=== PATIENT | male | born 1965 ===

== ENCOUNTER 2016-11-29 21:08 | Emergency (ER) | payer BC, OTHER ==
[2016-11-29 21:40] VITALS: BP 148/93; PULSE 85; RESP 16; TEMP 98.2; O2SAT 100
--- NOTE | 2016-11-29 22:14 | ED PDOC ---
Lower Extremity Pain/Injury Time Seen by Provider: 11/29/16 21:36 Chief Complaint (Nursing): Lower Extremity Problem/Injury Chief Complaint (Provider): Ankle pain History Per: Patient History/Exam Limitations: no limitations Onset/Duration Of Symptoms: Days (2) Current Symptoms Are (Timing): Still Present Additional Complaint(s): Pt reports L ankle pain and swelling X 2 days, woke up with pain, no h/o trauma. Denies fever, paresthesias, weakness, recent travel, CP, SOB. - Risk Factors DVT Risk Factors: Pos: None Past Medical History Reviewed: Nursing Documentation, Vital Signs Vital Signs: Last Vital Signs Temp 98.2 F 11/29/16 21:37 Pulse 85 11/29/16 21:37 Resp 16 11/29/16 21:37 BP 148/93 H 11/29/16 21:37 Pulse Ox 100 11/29/16 21:37 - Medical History Other PMH: Sickle cell trait - Surgical History Other surgeries: R knee - Family History Family History: States: No Known Family Hx - Living Arrangements Living Arrangements: With Family - Social History Current smoker - smoking cessation education provided: No - Home Medications Home Medications: Ambulatory Orders Medication Instructions Recorded Diclofenac Sodium [Voltaren] 50 mg PO TID PRN #20 tab 11/29/15 Naproxen [Naprosyn] 500 mg PO Q12 #14 tab 11/30/16 - Allergies Allergies/Adverse Reactions: Allergies Allergy/AdvReac Type Severity Reaction Status Date / Time No Known Allergies Allergy Verified 11/29/15 20:20 Wells Criteria for PE - Wells Criteria for Pulmonary Embolism Clinical Signs and Symptoms of DVT: No P.E is #1 Diagnosis, or Equally Likely: No Heart Rate >100: No Immobilization at least 3 days;Surgery previous 4 weeks: No Previous, objectively diagnosed PE or DVT: No Hemoptysis: No Malignancy w/treatment within 6 months, or palliative: No Total Score: 0 Review of Systems Constitutional: Negative for: Fever, Chills Cardiovascular: Negative for: Chest Pain, Palpitations Respiratory: Negative for: Cough, Shortness of Breath Musculoskeletal: Positive for: Leg Pain, Foot Pain Skin: Negative for: Rash, Lesions Neurological: Negative for: Weakness, Numbness Physical Exam - Reviewed Nursing Documentation Reviewed: Yes Vital Signs Reviewed: Yes - Physical Exam Appears: Positive for: Well, No Acute Distress Pulses-Dorsalis Pedis (L): 2+ Extremity: Positive for: Normal ROM, Tenderness (Bimalleolar area), Calf Tenderness, Capillary Refill (<2 sec). Negative for: Pedal Edema, Deformity, Swelling Neurologic/Psych: Positive for: Alert, Oriented. Negative for: Motor/Sensory Deficits - ECG O2 Sat by Pulse Oximetry: 100 - Other Rad XR L ankle X-Ray: Interpreted by Me (Negative.) XR L foot X-Ray: Interpreted by Me (Negative.) Medical Decision Making Medical Decision Makin yo male with L ankle pain and swelling. - XR L ankle/foot - LLE Doppler - Toradol Disposition - Clinical Impression Clinical Impression: Ankle pain - Patient ED Disposition Is Patient to be Admitted: Transfer of Care - Disposition Referrals: [facility] [Outside] Podiatry Clinic [Outside] Disposition Time: 00:00 Condition: STABLE Prescriptions: Naproxen [Naprosyn] 500 mg PO Q12 #14 tab Instructions: Swollen Joint (ED) Forms: [facility] ED School/Work Excuse Patient Signed Over To: Vinicio Villasenor Handoff Comments: Pending ultrasound.
--- NOTE | 2016-11-30 00:10 | ED PDOC ---
- ECG O2 Sat by Pulse Oximetry: 100 Medical Decision Making Medical Decision Making: Patient signed out from Dr. Spencer at 0000 pending Ultrasound. 0052: Ultrasound LLE Impression: Normal left lower extremity duplex venous ultrasound. 0100: Provider explained results to patient who will follow up with podiatry clinic. Patient is stable upon discharge. Dx: Ankle pain Rx: Naprosyn Condition: Stable Scribe Attestation Documented by Michaela Prado training under Shayne Pérez acting as a scribe for Vinicio Villasenor MD. Provider Attestation: All medical record entries made by the Scribe were at my direction and personally dictated by me. I have reviewed the chart and agree that the record accurately reflects my personal performance of the history, physical exam, medical decision making, and the department course for this patient. I have also personally directed, reviewed, and agree with the discharge instructions and disposition. Disposition Counseled Patient/Family Regarding: Studies Performed, Diagnosis, Need For Followup, Rx Given - Clinical Impression Clinical Impression: Ankle pain - POA Present On Arrival: None - Disposition Referrals: [facility] [Outside] Podiatry Clinic [Outside] Disposition: Routine/Home Disposition Time: 01:00 Condition: STABLE Prescriptions: Naproxen [Naprosyn] 500 mg PO Q12 #14 tab Instructions: Swollen Joint (ED) Forms: [facility] ED School/Work Excuse
--- NOTE | 2016-11-30 08:18 | US ---
HISTORY: LLE pain . PRIORS: None. FINDINGS: 2-D, color and duplex Doppler analysis of the lower extremity venous circulation using routine protocol from the femoral veins through the popliteal veins. Venous compressibility: Normal. Flow and augmentation patterns: Normal. Visualized veins upper third of calf: Normal. Haney cyst: None. IMPRESSION: No sonographic or Doppler evidence for DVT in left lower extremity.
--- NOTE | 2016-11-30 09:03 | RAD ---
PROCEDURE: Left Ankle Radiographs. HISTORY: Bilateral ankle pain COMPARISON: None FINDINGS: BONES: Normal. No fracture. JOINTS: Normal. No osteoarthritis. Ankle mortise maintained. Talar dome intact SOFT TISSUES: [id number] soft tissue swelling. OTHER FINDINGS: None. IMPRESSION: No evidence of acute fracture or dislocation. Mild soft tissue swelling.
--- NOTE | 2016-11-30 09:06 | RAD ---
PROCEDURE: Left Foot Radiographs. HISTORY: Bilateral ankle pain COMPARISON: None. FINDINGS: BONES: Normal. No fracture. JOINTS: Normal. SOFT TISSUES: Normal. OTHER FINDINGS: None. IMPRESSION: No evidence of acute fracture or dislocation.
== END 2016-11-30 01:19 | disposition home or self-care (01) ==
LOC: H.ER 21:08
DX: M25.572 Pain in left ankle and joints of left foot (principal); D57.3 Sickle-cell trait

== ENCOUNTER 2017-05-05 21:09 | Emergency (ER) | payer OTHER ==
[2017-05-05] MEDS ORDERED: Sodium Chloride 0.9% 1,000 ML IV STA (21:37)
[2017-05-05 21:53] LABS: BASO % 0.4 % (0.0-2.0); EOS # 0.1 K/uL (0.0-0.7); EOS % 1.8 % (0.0-4.0); HEMATOCRIT 38.5 % (35.0-51.0); LYMPH % 52.1 % (20.0-40.0); MEAN CELL VOLUME 84.4 fl (80.0-94.0); MEAN CORPUSCULAR HEMOGLOBIN 28.4 pg (27.0-31.0); MEAN CORPUSCULAR HGB CONC 33.6 g/dL (33.0-37.0); MEAN PLATELET VOLUME 8.2 fl (7.2-11.7); MONO # 0.7 K/uL (0.0-0.8); MONO % 9.1 % (0.0-10.0); NEUT # 2.8 K/uL (1.8-7.0); NEUT % 36.6 % (50.0-75.0); NRBC % 0.1 % (0.0-0.0); RED CELL DISTRIBUTION WIDTH 13.3 % (11.5-14.5); WHITE BLOOD COUNT 7.6 K/uL (4.8-10.8)
[2017-05-05 22:03] LABS: ALB/GLOB RATIO 1.3 (1.0-2.1); ALKALINE PHOSPHATASE 66 U/L (38-126); ALT/SGPT 56 U/L (21-72); AST/SGOT 30 U/L (17-59); BILIRUBIN,TOTAL 0.3 mg/dl (0.2-1.3); BLOOD UREA NITROGEN 20 mg/dl (9-20); CALCIUM 9.2 mg/dL (8.4-10.2); CARBON DIOXIDE 24 mmol/L (22-30); CHLORIDE 105 mmol/L (98-107); GFR AFRICAN-AMERICAN > 60; GLUCOSE,RANDOM 169 mg/dL (75-110); LIPASE 121 U/L (23-300); POTASSIUM 4.3 MMOL/L (3.6-5.0); SODIUM 142 mmol/l (132-148); TOTAL PROTEIN 7.8 G/DL (6.3-8.2)
--- NOTE | 2017-05-05 22:51 | ED PDOC ---
HPI: Abdomen Time Seen by Provider: 05/05/17 21:37 Chief Complaint (Nursing): GI Problem Chief Complaint (Provider): Nausea and vomiting History Per: Patient History/Exam Limitations: no limitations Onset/Duration Of Symptoms: Mins (Just prior to arrival) Current Symptoms Are (Timing): Better Associated Symptoms: Nausea, Vomiting. denies: Diarrhea Additional Complaint(s): Patient is a 52 y/o male with no past medical history, who presents to the ED complaining of nausea and vomiting that began just prior to arrival. Patient reports 3 episodes of non-bloody vomiting, but denies any abdominal pain or diarrhea. He claims that symptoms began about an hour after having a salad with oil, vinegar, and mozzarella, as well as pork rinds. He notes that upon eating the meal he felt "queasy" and nauseas and then later developed body fatigue. Patient claims that since vomiting, he feels better. PMD: Claudio Salinas Past Medical History Reviewed: Historical Data, Nursing Documentation, Vital Signs Vital Signs: Last Vital Signs Temp 97.9 F 05/05/17 23:06 Pulse 60 05/05/17 23:06 Resp 16 05/05/17 23:06 BP 125/79 05/05/17 23:06 Pulse Ox 99 05/05/17 23:08 - Medical History PMH: No Chronic Diseases - Surgical History Other surgeries: Bilateral wrist surgery, right knee surgery - Family History Family History: States: No Known Family Hx - Social History Current smoker - smoking cessation education provided: No Alcohol: None Drugs: Denies - Home Medications Home Medications: Ambulatory Orders Medication Instructions Recorded Diclofenac Sodium [Voltaren] 50 mg PO TID PRN #20 tab 11/29/15 Naproxen [Naprosyn] 500 mg PO Q12 #14 tab 11/30/16 Ondansetron ODT [Zofran ODT] 4 mg PO Q8 PRN #12 odt 05/05/17 - Allergies Allergies/Adverse Reactions: Allergies Allergy/AdvReac Type Severity Reaction Status Date / Time No Known Allergies Allergy Verified 11/29/15 20:20 Review of Systems ROS Statement: Except As Marked, All Systems Reviewed And Found Negative Constitutional: Positive for: Other (Fatigue) Gastrointestinal: Positive for: Nausea, Vomiting (nonbloody). Negative for: Abdominal Pain, Diarrhea Physical Exam - Reviewed Nursing Documentation Reviewed: Yes Vital Signs Reviewed: Yes - Physical Exam Appears: Positive for: Non-toxic, No Acute Distress Head Exam: Positive for: ATRAUMATIC, NORMOCEPHALIC Skin: Positive for: Normal Color, Warm, Dry Eye Exam: Positive for: Normal appearance, EOMI, PERRL ENT: Positive for: Normal ENT Inspection Neck: Positive for: Normal, Painless ROM, Supple Cardiovascular/Chest: Positive for: Regular Rate, Rhythm. Negative for: Murmur Respiratory: Positive for: Normal Breath Sounds. Negative for: Respiratory Distress Gastrointestinal/Abdominal: Positive for: Normal Exam, Soft. Negative for: Tenderness Back: Positive for: Normal Inspection. Negative for: L CVA Tenderness, R CVA Tenderness, Vertebral Tenderness Extremity: Positive for: Normal ROM. Negative for: Pedal Edema Neurologic/Psych: Positive for: Alert, Oriented (x3). Negative for: Motor/ Sensory Deficits - Laboratory Results Result Diagrams: 05/05/17 21:48 05/05/17 21:48 - ECG O2 Sat by Pulse Oximetry: 99 (RA) Pulse Ox Interpretation: Normal - Progress Re-evaluation Time: 23:07 Condition: Re-examined, Improved Medical Decision Making Medical Decision Making: Time: 21:37 Initial Impression: Acute nausea and vomiting Differential Diagnoses: Gastritis, pancreatitis, food poisoning Initial Plan: -CMP -Lipase -CBC -Sodum Chloride 0.9% 1,000ml mls/hr -Zofran Inj 4mg IV -reassess Scribe Attestation: Documented by Garfield Gandhi, acting as a scribe for Zoya Daniels MD Provider Scribe Attestation: All medical record entries made by the Scribe were at my direction and personally dictated by me. I have reviewed the chart and agree that the record accurately reflects my personal performance of the history, physical exam, medical decision making, and the department course for this patient. I have also personally directed, reviewed, and agree with the discharge instructions and disposition. Disposition - Clinical Impression Clinical Impression: Nausea and vomiting - Patient ED Disposition Is Patient to be Admitted: No Doctor Will See Patient In The: Office Counseled Patient/Family Regarding: Studies Performed, Diagnosis, Need For Followup - Disposition Referrals: [facility] [Outside] Disposition: Routine/Home Disposition Time: 23:07 Condition: GOOD Additional Instructions: Return for worsening. Follow up with your PCP in 2-3 days. Prescriptions: Ondansetron ODT [Zofran ODT] 4 mg PO Q8 PRN #12 odt PRN Reason: Nausea/Vomiting Instructions: Acute Nausea and Vomiting (ED), Food Poisoning (ED)
[2017-05-05 23:06] VITALS: BP 125/79; PULSE 60; RESP 16; TEMP 97.9
[2017-05-05 23:09] VITALS: O2SAT 99
== END 2017-05-05 23:18 | disposition home or self-care (01) ==
LOC: H.ER 21:09
DX: A05.9 Bacterial foodborne intoxication, unspecified (principal)
CPT/HCPCS: 80053; 83690; 85025; 96360; 99284; J2405; J7040

== ENCOUNTER 2017-12-23 20:41 | Emergency (ER) | payer OTHER ==
[2017-12-23 20:50] VITALS: TEMP 98.1; O2SAT 99
--- NOTE | 2017-12-23 21:16 | ED PDOC ---
HPI: Chest Pain Chief Complaint (Nursing): Chest Pain Chief Complaint (Provider): chest ''fluttering'' History Per: Patient History/Exam Limitations: no limitations Current Symptoms Are (Timing): Gone Now Pain Scale Rating Of: 0 Quality: Pressure (fluttering) Associated Symptoms: denies: Nausea, Dyspnea, Diaphoresis, Syncope Additional Complaint(s): 52 year old male with PMH of gout, seasonal allergies presents with complaints of left sided chest 'fluttering' that began around 15:00 while at a barbeque, may have had some chest pressure at that time. Unsure how long it lasted. Patient denies alleviating/exacerbating factors. Did not take medication for this pain. He has never had chest pain in the past, denies any heart disease. No diaphoresis, nausea, vomiting, pain. PMH: Father had 3 MIs. His mother has DM. Past Medical History Vital Signs: Last Vital Signs Temp 98.1 F 12/23/17 20:47 Pulse 70 12/23/17 22:26 Resp 16 12/23/17 22:26 BP 132/83 12/23/17 22:26 Pulse Ox 99 12/23/17 22:26 - Family History Family History: States: [place], Diabetes - Home Medications Home Medications: Ambulatory Orders Medication Instructions Recorded Diclofenac Sodium [Voltaren] 50 mg PO TID PRN #20 tab 11/29/15 Naproxen [Naprosyn] 500 mg PO Q12 #14 tab 11/30/16 Ondansetron ODT [Zofran ODT] 4 mg PO Q8 PRN #12 odt 05/05/17 - Allergies Allergies/Adverse Reactions: Allergies Allergy/AdvReac Type Severity Reaction Status Date / Time No Known Allergies Allergy Verified 11/29/15 20:20 Review of Systems Constitutional: Negative for: Fever, Chills, Sweats, Weakness ENT: Positive for: Nose Congestion Cardiovascular: Negative for: Chest Pain, Palpitations, Orthopnea, Light Headedness Respiratory: Negative for: Cough, Shortness of Breath, Hemoptysis, SOB with Exertion, Wheezing Gastrointestinal: Negative for: Nausea, Vomiting, Abdominal Pain, Diarrhea Neurological: Negative for: Weakness, Confusion, Dizziness Physical Exam - Physical Exam Appears: Positive for: No Acute Distress (patient appears comfortable) Head Exam: Positive for: ATRAUMATIC, NORMAL INSPECTION, NORMOCEPHALIC Skin: Positive for: Normal Color, Warm, DRY Eye Exam: Positive for: EOMI, Normal appearance, PERRL Neck: Positive for: Normal, Painless ROM Cardiovascular/Chest: Positive for: Regular Rate, Rhythm, Chest Non Tender. Negative for: Murmur, Bradycardia, Tachycardia Respiratory: Positive for: Normal Breath Sounds. Negative for: Accessory Muscle Use, Rales, Rhonchi, Stridor, Wheezing, Respiratory Distress Gastrointestinal/Abdominal: Positive for: Normal Exam, Bowel Sounds, Soft. 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 Negative for: Motor/Sensory Deficits - Laboratory Results Result Diagrams: 12/23/17 21:10 12/23/17 21:10 - ECG ECG: Positive for: Interpreted By Me (NSR, normal ecg ) O2 Sat by Pulse Oximetry: 99 - Radiology X-Ray: Interpreted by Me, Viewed By Me X-Ray Interpretation: No Acute Disease - Progress ED Course And Treament: 52 year old male with left sided chest 'fluttering'. Rule out ACS Patient appears comfortable upon exam, no chest pain, diaphoresis, n/v or other complaints at present. --ASA 325 mg --CBC --CMP --LIPIDS --TROPONIN X 1 --ECG --CXR Case d/w Dr. Spencer Reeval 22:15 Labs reviewed, imaging reviewed. Patient comfortable in stretcher, c/o of left sided pain, shortness of breath will admit for observation, rule out acs Patient seen with Dr. Spencer. 22:35 Patient declined admission for observation. Signed out AMA. Dr. Spencer aware. Disposition - Clinical Impression Clinical Impression: Chest pain - Disposition Disposition: Against Medical Advice Disposition Time: 22:36 Condition: STABLE Additional Instructions: ED precautions reviewed with patient and his . Forms: [employer] (Senegalese)
[2017-12-23 21:21] LABS: BASO # 0.1 K/uL (0.0-0.2); EOS # 0.4 K/uL (0.0-0.7); EOS % 6.3 % (0.0-4.0); HEMOGLOBIN 13.3 g/dL (12.0-18.0); LYMPH # 2.6 K/uL (1.0-4.3); LYMPH % 42.7 % (20.0-40.0); MEAN CELL VOLUME 84.2 fl (80.0-94.0); MEAN CORPUSCULAR HEMOGLOBIN 29.1 pg (27.0-31.0); MEAN CORPUSCULAR HGB CONC 34.5 g/dL (33.0-37.0); MEAN PLATELET VOLUME 8.3 fl (7.2-11.7); MONO # 0.5 K/uL (0.0-0.8); MONO % 8.4 % (0.0-10.0); NEUT # 2.5 K/uL (1.8-7.0); NEUT % 41.6 % (50.0-75.0); NRBC % 0.1 % (0.0-0.0); RBC 4.59 Mil/uL (4.40-5.90); RED CELL DISTRIBUTION WIDTH 13.7 % (11.5-14.5); WHITE BLOOD COUNT 6.1 K/uL (4.8-10.8)
[2017-12-23 21:31] LABS: PARTIAL THROMBOPLASTIN TIME 28.6 Seconds (25.6-37.1); PROTHROMBIN TIME 11.4 Seconds (9.8-13.1)
[2017-12-23 21:34] LABS: ALB/GLOB RATIO 1.2 (1.0-2.1); ALBUMIN 4.2 g/dL (3.5-5.0); ALT/SGPT 73 U/L (21-72); AST/SGOT 40 U/L (17-59); BLOOD UREA NITROGEN 16 mg/dl (9-20); CALCIUM 9.1 mg/dL (8.4-10.2); GFR AFRICAN-AMERICAN > 60; GFR NON-AFRICAN AMERICAN > 60; HDL CHOLESTEROL 26 MG/DL (30-70)
[2017-12-23 21:45] LABS: LDL CHOLESTEROL 110 mg/dL (0-129)
[2017-12-23 22:27] VITALS: BP 132/83; PULSE 70; RESP 16
--- NOTE | 2017-12-24 08:25 | RAD ---
PROCEDURE: CHEST RADIOGRAPH, 1 VIEW HISTORY: chest pain COMPARISON: None available. FINDINGS: LUNGS: The lungs are well inflated and clear. PLEURA: No pneumothorax or pleural fluid seen. CARDIOVASCULAR: Normal. OSSEOUS STRUCTURES: No significant abnormalities. VISUALIZED UPPER ABDOMEN: Normal. OTHER FINDINGS: None. IMPRESSION: No active pulmonary disease.
--- NOTE | 2017-12-25 08:49 | CARD ---
APPROVED REPORT EKG Measurement Heart [id number] <Conclusion> Normal sinus rhythm Normal ECG
== END 2017-12-23 22:36 | disposition left against medical advice (07) ==
LOC: H.ER 20:41
DX: R07.89 Other chest pain (principal)